=== PATIENT | male | born 1965 | race Caucasian/White ===

== ENCOUNTER 2021-05-21 17:24 | Inpatient (IN) | payer BC ==
[~2021-05-21] VITALS: Ht 175.3 cm; Wt 70.5 kg
[2021-05-21 18:30] LABS: BASO % 0.4 % (0.0-2.0); EOS # 0.1 (0.0-0.7); EOS % 1.1 % (0-4.0); GRAN # 6.8 (1.4-6.5); GRAN % 75.7 % (42.2-75.2); HEMATOCRIT 46.7 % (42.0-52.0); HEMOGLOBIN 15.7 g/dl (13.5-18.0); LYMPH # 0.7 (1.2-3.4); LYMPH % 7.7 % (20.0-51.0); MEAN CELL VOLUME 87 fl (80.0-100.0); MEAN CORPUSCULAR HEMOGLOBIN 29 pg (27.0-31.0); MEAN CORPUSCULAR HGB CONC 34 g/dl (33.0-37.0); MEAN PLATELET VOLUME 11.2 fl (7.4-10.4); MONO # 1.3 (0.1-0.6); MONO % 14.8 % (1.7-9.3); PLATELET COUNT 191 K/mm3 (130-400); RED BLOOD COUNT 5.39 M/mm3 (4.20-5.60); REDCELL DISTRIBUTION WIDTH-CV 13.2 % (11.5-14.5)
[2021-05-21 18:31] LABS: ALBUMIN 4.6 gm/dL (3.5-5.0); ALKALINE PHOSPHATASE 268 U/L (50-136); ANION GAP 9 mmol/L (7-16); AST,SGOT 519 U/L (15-37); BILIRUBIN,TOTAL 5.2 mg/dL (0.0-1.0); BLOOD UREA NITROGEN 11 mg/dL (9-20); CALCIUM 9.6 mg/dL (8.4-10.2); CARBON DIOXIDE 25 mmol/L (22-30); CHLORIDE 105 mmol/L (98-107); CREATINE KINASE 46 U/L (55-170); CREATININE, serum 0.85 (0.66-1.25); GLUCOSE 102 mg/dL (74-106); LIPASE 75 U/L (23-300); POTASSIUM 3.8 mmol/L (3.4-5.0); SODIUM 139 mmol/L (137-145); TOTAL PROTEIN 8.2 gm/dL (6.4-8.2)
[2021-05-21 18:32] LABS: ACETAMINOPHEN < 10 ug/mL (10-30); ALCOHOL(ethanol),MEDICAL < 10 mg/dL
[2021-05-21] MEDS ORDERED: NEURONTIN300 MG/CAP PO (18:35)
[2021-05-21 18:46] LABS: COLLECTION METHOD CLEAN CATCH
[2021-05-21 18:55] LABS: MUCOUS Present /lpf; PH 5 (5-8); SQUAMOUS EPITHELIAL None Seen /hpf; URINE APPEARANCE Clear; URINE BACTERIA None Seen /hpf; URINE BILIRUBIN Negative (NEGATIVE); URINE BLOOD Negative (NEGATIVE); URINE COLOR Amber; URINE GLUCOSE Negative (NEGATIVE); URINE KETONE Negative (NEGATIVE); URINE LEUKOCYTE ESTERASE Negative (NEGATIVE); URINE NITRATE Negative (NEGATIVE); URINE PROTEIN(semi-quant) Negative (NEGATIVE); URINE RBC None Seen /hpf; URINE UROBILINOGEN Negative (NEGATIVE)
[2021-05-21 18:58] LABS: ALANINE AMINOTRANSFERASE 1094 U/L (4-49)
--- NOTE | 2021-05-21 21:20 | NUR ---
Arrived to unit, vijay awake, alert, oriented x 4, independently ambulating w/o issue, oriented to room, updated on plan of care, verbalized understanding.
[2021-05-21] MEDS ORDERED: VITAMIN B12 1541 TAB PO (21:27)
[2021-05-21] MEDS ORDERED: OMEGA-3 1000 MG1 CAP PO (21:27)
[2021-05-21 23:59] VITALS: BP 125/70; PULSE 80; TEMP 99.2
[2021-05-22] VITALS (12 sets, daily range): BP systolic 11–128; BP diastolic 62–81; PULSE 54–86; TEMP 97.9–98.9
--- NOTE | 2021-05-22 05:34 | NUR ---
Awake, alert, oriented x 4, ambulates w/o issue, tolerating IV fluids, urinating w/o issue, prn pain meds per MAR, continues with abdomen pain, Dr. Banerjee came to see patient overnight - updated patient on plan of care, will continue to monitor.
[2021-05-22 06:54] LABS: BASO % 0.3 % (0.0-2.0); EOS % 0.3 % (0-4.0); GRAN # 5.7 (1.4-6.5); GRAN % 74.8 % (42.2-75.2); HEMATOCRIT 42.4 % (42.0-52.0); HEMOGLOBIN 14.2 g/dl (13.5-18.0); LYMPH # 0.7 (1.2-3.4); LYMPH % 9.2 % (20.0-51.0); MEAN CELL VOLUME 87 fl (80.0-100.0); MEAN CORPUSCULAR HEMOGLOBIN 29 pg (27.0-31.0); MEAN CORPUSCULAR HGB CONC 34 g/dl (33.0-37.0); MEAN PLATELET VOLUME 11.3 fl (7.4-10.4); MONO # 1.1 (0.1-0.6); PLATELET COUNT 155 K/mm3 (130-400); RED BLOOD COUNT 4.86 M/mm3 (4.20-5.60); REDCELL DISTRIBUTION WIDTH-CV 13.2 % (11.5-14.5)
[2021-05-22 07:02] LABS: ALBUMIN 3.7 gm/dL (3.5-5.0); BILIRUBIN,DIRECT 4.1 mg/dL (0.0-0.4); BILIRUBIN,TOTAL 5.3 mg/dL (0.0-1.0); CALCIUM 8.9 mg/dL (8.4-10.2); CREATININE, serum 0.83 (0.66-1.25); POTASSIUM 3.8 mmol/L (3.4-5.0); TOTAL PROTEIN 6.8 gm/dL (6.4-8.2)
[2021-05-22 07:05] LABS: INR 1.2 (0.8-3.0); PROTHROMBIN TIME 13.3 SECONDS (9.7-12.8)
--- NOTE | 2021-05-22 09:30 | NUR ---
Patient alert and oriented, answers questions appropriately. See assessment. Abdomen soft, tender, non distended. Bowel sounds audible x4 quads. +Flatus. Skin and sclera jaundiced. C/o intemittent pain across abdomen. No other c/o at this time.
--- NOTE | 2021-05-22 12:11 | NUR ---
Sw met with the pt who stated his preference to return home once medically stable( present). The pt lives at home with his , Win (ph# [phone]). The pt is independent on all his ADLs and does not use any DME. The pt PCP is Dr. wilfred Viramontes and gets his medications from [facility] in [place]. The pt does have a DPOA-HC. No other needs stated at this time. Sw to await further recommendations and follow up as needed. D/C: Home with .
--- NOTE | 2021-05-22 12:56 | NUR ---
Patient to ERCP with surgical staff at 1225.
--- NOTE | 2021-05-22 14:17 | NUR ---
Patient returns from ERCP at 1405. Assessment unchanged
--- NOTE | 2021-05-22 19:17 | NUR ---
Awake, alert, oriented x 4, able to verbalize all needs, patient states that pain has "subsided greatly" since ERCP, updated on pending gallbladder removal this afternoon- verbalized understanding, denied needs at this time, NPO status maintained.
[2021-05-23] VITALS (12 sets, daily range): BP systolic 116–148; BP diastolic 62–88; PULSE 61–90; TEMP 98–98.9
[2021-05-23 06:15] LABS: BASO % 0.6 % (0.0-2.0); EOS # 0.1 (0.0-0.7); EOS % 2.8 % (0-4.0); GRAN # 2.9 (1.4-6.5); HEMATOCRIT 41.3 % (42.0-52.0); HEMOGLOBIN 13.7 g/dl (13.5-18.0); LYMPH # 0.8 (1.2-3.4); LYMPH % 16.8 % (20.0-51.0); MEAN CELL VOLUME 87 fl (80.0-100.0); MEAN CORPUSCULAR HEMOGLOBIN 29 pg (27.0-31.0); MEAN CORPUSCULAR HGB CONC 33 g/dl (33.0-37.0); MEAN PLATELET VOLUME 11.7 fl (7.4-10.4); MONO # 0.8 (0.1-0.6); MONO % 16.4 % (1.7-9.3); PLATELET COUNT 170 K/mm3 (130-400); RED BLOOD COUNT 4.75 M/mm3 (4.20-5.60); REDCELL DISTRIBUTION WIDTH-CV 13.3 % (11.5-14.5)
[2021-05-23 06:25] LABS: CALCIUM 9.1 mg/dL (8.4-10.2); CREATININE, serum 0.76 (0.66-1.25); POTASSIUM 3.9 mmol/L (3.4-5.0)
--- NOTE | 2021-05-23 10:45 | NUR ---
First visit from the dental scheduling coordinator. No needs right now.
--- NOTE | 2021-05-23 11:00 | NUR ---
0700 PT RECEIVED RESTING IN BED. NO S/S OF DISTRESS NOTED. PT DENIES HAVING PAIN. COMFORT MEASURES IN PLACE. CALL-LIGHT IN REACH. BED IN LOW POSITION. 0800 PT TOOK A SHOWER. PT NPO SINCE MIDNIGHT. 0900 SURGEON AT THE BEDSIDE AND EXPLAINED PROCEDURE TO PT AND SPOUSE. 1000 PT TRANSPORTED TO O.R. FOR PROCEDURE. NO S/S OF DISTRESS NOTED.
--- NOTE | 2021-05-23 13:53 | NUR ---
1240 PT RECEIVED FROM O.R. PT STATES, "RIGHT SIDE IS TENDER, BUT NO PAIN." SPOUSE AT THE BEDSIDE. COMFORT MEASURES IN PLACE. POST OP VITAL SIGNS IN PROGRESS. CALL-LIGHT IN REACH. BED IN LOW POSITION. SCD'S ON. WILL CONTINUE TO MONITOR.
--- NOTE | 2021-05-23 17:57 | NUR ---
1700 PT UP TO CHAIR. PT STATES HE FEELS SORE TO THE RIGHT UPPER QUADRANT. HE ALSO STATES THAT HE FEELS GROGGY AND WOULD NOT LIKE TO AMBULATE AT THIS TIME. COMFORT MEASURES IN PLACE. CALL-LIGHT IN REACH. WILL CONTINUE TO MONITOR.
[2021-05-24 00:37] VITALS: BP 133/80; PULSE 58; TEMP 98.2
[2021-05-24 03:36] VITALS: BP 124/73; PULSE 55; TEMP 98.2
[2021-05-24 06:16] LABS: BASO % 0.1 % (0.0-2.0); EOS % 0.1 % (0-4.0); GRAN # 7.2 (1.4-6.5); GRAN % 78.4 % (42.2-75.2); HEMATOCRIT 40.1 % (42.0-52.0); HEMOGLOBIN 13.3 g/dl (13.5-18.0); LYMPH # 0.9 (1.2-3.4); LYMPH % 10.1 % (20.0-51.0); MEAN CELL VOLUME 87 fl (80.0-100.0); MEAN CORPUSCULAR HEMOGLOBIN 29 pg (27.0-31.0); MEAN CORPUSCULAR HGB CONC 33 g/dl (33.0-37.0); MEAN PLATELET VOLUME 11.6 fl (7.4-10.4); PLATELET COUNT 187 K/mm3 (130-400); RED BLOOD COUNT 4.61 M/mm3 (4.20-5.60); REDCELL DISTRIBUTION WIDTH-CV 13.6 % (11.5-14.5)
[2021-05-24 06:30] LABS: ALBUMIN 3.7 gm/dL (3.5-5.0); BILIRUBIN,TOTAL 4.6 mg/dL (0.0-1.0); CALCIUM 9.2 mg/dL (8.4-10.2); CREATININE, serum 0.78 (0.66-1.25); POTASSIUM 3.7 mmol/L (3.4-5.0)
[2021-05-24 07:58] VITALS: BP 115/76; PULSE 55; TEMP 97.8
--- NOTE | 2021-05-24 09:00 | NUR ---
Patient up to the bathroom this am, voided. Patient breakfast ordered, denies nausea. Patient did not want to take his neurotin or protinix this am, but was agreeable to take his IV antibioitcs. Patient reports he got behind on pain medication last night & pain is increased this am. Will given next dose when due. Abdomen soft, bowels audible, reports passing flatus. Will monitor.
[2021-05-24 11:42] VITALS: BP 132/82; PULSE 58; TEMP 98.3
[2021-05-24] MEDS ORDERED: LEVAQUIN 5500 MG/TA1 PO (11:42)
[2021-05-24] MEDS ORDERED: NORCO 325 MG-51 TAB PO (11:42)
--- NOTE | 2021-05-24 13:10 | NUR ---
Patient ready for discharge. He is feeling better. & rounded. Discharge orders obtained. One tab norco prior to discharge. He tolerated lunch & po antibiotics. Patient verbalzed all discharge teaching. Inicisons cares & signs and symptoms of when to call doctor reviwed. Patient aware he needs to call in am for follow up appt. Int DC. Patient wheeled out with all belongings his taking him home .
== END 2021-05-24 14:05 | disposition home or self-care (01) | DRG 419 ==
LOC: COL.ER 17:24 → SURG 19:06
PROVIDERS: Emergency Medicine; Nurse Practitioner Family; Surgery; ADMIT Student in an Organized Health Care Education/Training Program
PROC: 0FC98ZZ Extirpation of Matter from Common Bile Duct, Via Natural or Artificial Opening Endoscopic (ICD-10-PCS; 2021-05-22)
PROC: 0FCD8ZZ Extirpation of Matter from Pancreatic Duct, Via Natural or Artificial Opening Endoscopic (ICD-10-PCS; 2021-05-22)
PROC: 0FT44ZZ Resection of Gallbladder, Percutaneous Endoscopic Approach (ICD-10-PCS; principal; 2021-05-23 09:30)
DX: K80.62 Calculus of gallbladder and bile duct with acute cholecystitis without obstruction (principal); G62.9 Polyneuropathy, unspecified; R03.0 Elevated blood-pressure reading, without diagnosis of hypertension; Z20.822 Contact with and (suspected) exposure to COVID-19; Z88.0 Allergy status to penicillin; Z88.2 Allergy status to sulfonamides
CPT/HCPCS: 99223-AI; 99232-AI; 99239; C1769; C9113; J0690; J0696; J1100; J1170; J1610; J2405; J2704; J2765; J3010; J7030; J7120; Q9967

== ENCOUNTER → 2023-01-05 | Outpatient (CLI) | payer BC ==
[~2023-01-05] MED LIST: LEVAQUIN 5500 MG/TA1 PO; NEURONTIN300 MG/CAP PO; NORCO 325 MG-51 TAB PO; OMEGA-3 1000 MG1 CAP PO; VITAMIN B12 1541 TAB PO
== END ==
LOC: COL.RAD 11:58
DX: M25.562 Pain in left knee (principal)